=== PATIENT | female | born 1955 | race Caucasian/White ===

== ENCOUNTER 2021-02-17 16:57 | Emergency (ER) | payer BC ==
[~2021-02-17 16:57] MED LIST: ESTROGENS0.3 MG PO; SOMA350 MG PO
[2021-02-17 18:13] LABS: HEMATOCRIT 45.9 % (37.0-47.0); HEMOGLOBIN 15.9 g/dL (12.5-16.0); MEAN CELL VOLUME 89 fl (78-100); MEAN CORPUSCULAR HEMOGLOBIN 31 pg (27-31); MEAN CORPUSCULAR HGB CONC 35 g/dL (33-37); MEAN PLATELET VOLUME 10.2 fl (7.4-10.4); PLATELET COUNT 101 K/mm3 (130-400); RED BLOOD COUNT 5.17 M/mm3 (4.10-5.30); WHITE BLOOD COUNT 2.4 K/mm3 (4.8-10.8)
[2021-02-17 18:27] LABS: POTASSIUM 3.8 mmol/L (3.5-5.1); SODIUM 138 mmol/L (136-145)
[2021-02-17 18:29] LABS: CALCIUM 9.2 mg/dL (8.3-10.5)
[2021-02-17 18:30] LABS: GLUCOSE 103 mg/dL (65-105); TOTAL PROTEIN 7.1 g/dL (6.2-8.1)
[2021-02-17 18:31] LABS: CARBON DIOXIDE 21 mmol/L (23-31)
[2021-02-17 18:32] LABS: TOTAL BILIRUBIN 0.5 mg/dL (0.2-1.2)
[2021-02-17 18:35] LABS: AST-SGOT 53 U/L (5-34)
[2021-02-17 18:36] LABS: ALT/SGPT 57 U/L (0-55)
[2021-02-17 18:49] LABS: TROPONIN-I < 0.03 ng/mL (<0.030)
[2021-02-17 19:04] VITALS: BP 146/86
[2021-02-17 23:46] LABS: BAND 4 % (0-10); NEUTROPHILS 70 % (42-75)
[2021-02-17 23:47] LABS: LYMPHOCYTE 13 % (20-51); MONOCYTE 13 % (3-10)
== END 2021-02-17 19:04 | disposition home or self-care (01) ==
LOC: ED 16:57
PROVIDERS: Nurse Practitioner
DX: U07.1 COVID-19 (principal); F41.9 Anxiety disorder, unspecified; Z73.0 Burn-out
CPT/HCPCS: J1885